=== PATIENT | female | born 1940 | race Asian ===

== ENCOUNTER → 2016-10-22 | Outpatient (CLI) | payer MEDICARE, OTHER | END | disposition home or self-care (01) | LOC: CARDMN 10:11 → EDSTATUS 10-31 16:36 | PROVIDERS: ATTEND Specialist | DX: Z01.818 Encounter for other preprocedural examination (principal); H26.8 Other specified cataract | CPT/HCPCS: 93005 ==

== ENCOUNTER 2022-01-26 11:01 | Emergency (ER) | payer MEDICARE, OTHER ==
[~2022-01-26] VITALS: Ht 149.9 cm; Wt 59.1 kg
[2022-01-26] MEDS ORDERED: DEXAMETHASONE SOD PHOS 4 MG/ML VIAL IM ONE (12:15)
[2022-01-26] MEDS ORDERED: CEPH-558 PO (12:19)
[2022-01-26] MEDS ORDERED: METH4TAB3 PO (12:19)
[2022-01-26] MEDS ORDERED: TRI115O TP (12:19)
[2022-01-26 12:55] VITALS: BP 124/62
== END 2022-01-26 13:04 | disposition home or self-care (01) ==
LOC: EMS 11:01
DX: R21 Rash and other nonspecific skin eruption (principal); L23.5 Allergic contact dermatitis due to other chemical products; E78.00 Pure hypercholesterolemia, unspecified
CPT/HCPCS: 99283; 96372; J1100